=== PATIENT | male | born 1995 | race Caucasian/White ===

== ENCOUNTER 2020-09-29 05:38 | Emergency (ER) | payer OTHER ==
[~2020-09-29 05:38] MED LIST: IBU800 MG PO; KEFLEX CAP 500500 MG PO
[2020-09-29] MEDS ORDERED: HYDROCODON-ACE1 EAC4 PO ×2 (08:29→09:05)
== END 2020-09-29 09:28 | disposition home or self-care (01) ==
LOC: ER1 05:38
DX: S43.015A Anterior dislocation of left humerus, initial encounter (principal); F17.200 Nicotine dependence, unspecified, uncomplicated; W19.XXXA Unspecified fall, initial encounter; Y92.009 Unspecified place in unspecified non-institutional (private) residence as the place of occurrence of the external cause
CPT/HCPCS: 23650; 73030; 96374; 96375; 99152; 99283; J2270; J2405; J2704

== ENCOUNTER 2021-04-24 14:24 | Emergency (ER) | payer OTHER ==
[~2021-04-24 14:24] MED LIST changes: +HYDROCODON-ACE1 EAC4 PO
== END 2021-04-24 17:03 | disposition home or self-care (01) ==
LOC: ER1 14:24
DX: S43.015A Anterior dislocation of left humerus, initial encounter (principal); W22.8XXA Striking against or struck by other objects, initial encounter; Y92.009 Unspecified place in unspecified non-institutional (private) residence as the place of occurrence of the external cause
CPT/HCPCS: 23650; 73030; 96374; 99152; 99283; J2270; J2704